=== PATIENT | female | born 1990 | race Caucasian/White ===

== ENCOUNTER → 2020-05-23 17:17 | Outpatient (CLI) | payer BC, SELFPAY | PROVIDERS: Visit Provider Nurse Practitioner Family | DX: N39.0 Urinary tract infection, site not specified (principal) | CPT/HCPCS: 87086 ==

== ENCOUNTER 2021-05-20 20:05 | Emergency (ER) | payer BC, SELFPAY ==
[2021-05-20 20:06] VITALS: BP 119/80; PULSE 108; RESP 18; TEMP 36.9; O2SAT 99; BMI 29.2
--- NOTE | 2021-05-20 20:47 | CT_ITS ---
PROCEDURE INFORMATION: Exam: CT Abdomen And Pelvis With Contrast Exam date and time: 05/20/2021 8:47 PM Age: 30 years old Clinical indication: Nausea and vomiting and other: Diarrhea; Additional info: N/v/d, abd sore TECHNIQUE: Imaging protocol: Computed tomography of the abdomen and pelvis with contrast. Radiation optimization: All CT scans at this facility use at least one of these dose optimization techniques: automated exposure control; mA and/or kV adjustment per patient size (includes targeted exams where dose is matched to clinical indication); or iterative reconstruction. Contrast material: ISOVUE; Contrast volume: 75 ml; Contrast route: IV; COMPARISON: ABDPELW CT abdomen pelvis w con 01/01/2019 8:22 PM FINDINGS: Lungs: No mass/infiltrate at either lung base. No pleural effusion. Liver: There is a 9 mm well-circumscribed low-attenuation area present within the posterior segment of the right hepatic lobe. It was present on prior examination of 01/01/2019. Is felt to be benign in nature. It probably represents either a small cyst or hemangioma in this location. The liver is normal in size. No evidence of intrahepatic biliary dilatation. Gallbladder and bile ducts: Normal. No calcified stones. No ductal dilation. Gallbladder wall thickness is normal. Pancreas: Normal. No ductal dilation. Spleen: Normal. No splenomegaly. Adrenal glands: Normal. No mass. Kidneys and ureters: There is a 2 mm nonobstructing nephrolith within the interpolar region of the right kidney. This appears new since prior examination. No evidence of soft tissue mass. No hydronephrosis. Stomach and bowel: Unremarkable. No obstruction. No mucosal thickening. Small bowel mesentery is normal. Appendix: The appendix is poorly visualized on this examination. There is no evidence of acute inflammatory process within the right lower quadrant. Intraperitoneal space: Unremarkable. No free air. No significant fluid collection. Vasculature: Unremarkable. No abdominal aortic aneurysm. Lymph nodes: Unremarkable. No enlarged lymph nodes. Urinary bladder: Unremarkable as visualized. Reproductive: The uterus is retroverted and retroflexed. There is a 3.8 cm low-attenuation mass without enhancement present within the right adnexal region, likely representing a functional ovarian cyst of the right ovary. This could be further evaluated with ultrasound of the pelvis with transvaginal and Doppler sonography. Bones/joints: Unremarkable. No acute fracture. Soft tissues: There is a small umbilical hernia which contains fat. No evidence of incarceration. IMPRESSION: 1. Findings within the right adnexal region likely reflect a functional ovarian cyst of right ovary. The uterus appears retroverted and retroflexed. Ultrasound of the pelvis with transvaginal and Doppler sonography could be performed for further evaluation. 2. No evidence of acute process within the abdomen or pelvis. 3. Small umbilical hernia which contains fat. No incarceration.
--- NOTE | 2021-05-20 20:47 | HMH.EDNVD ---
ED Disposition Clinical Impression: Gastroenteritis Disposition: Home, Self-Care Condition on Discharge: Good Instructions: DI for Diarrhea and Traveler's Diarrhea -- Adult Additional Instructions: fluids and see pcp for follow up Referrals: Jeff Haq APRN [Primary Care Provider] - - Critical Care Critical Care Time: No Attestation: On 05/20/21, the high probability of a clinically significant, sudden or life threatening deterioration of the following system(s) required my full and direct attention, intervention and personal management. The time I documented below is in addition to time spent performing reported procedures but includes the following listed in this critical care notation. Medical Decision Making - Medical Records Medical records reviewed: Yes: I reviewed the patient's medical records. - Guy Inquiry Pt receiving controlled substance: No Vital Signs: 05/20/21 20:06 Temperature 98.4 F Temperature Source Oral Pulse Rate [Right] 108 H Respiratory Rate 18 Blood Pressure [Right Arm] 119/80 Blood Pressure Mean [Right Arm] 93 02 Sat by Pulse Oximetry 99 Oxygen Delivery Method Room Air - Lab Data Lab results reviewed: Yes: I reviewed the patient's lab results. Lab Results 05/20/21 20:27: Urine Color Yellow, Urine Appearance Clear, Urine pH 6.0, Ur Specific [place] >= 1.030, Urine Protein Trace, Urine Glucose (UA) Negative, Urine Ketones Trace, Urine Blood 1+, Urine Nitrate Negative, Urine Bilirubin 1+ A, Urine Urobilinogen 2.0, Ur Leukocyte Esterase Negative, Urine RBC 3-5, Urine WBC 3-5, Ur Squamous Epith Cells 20-50, Urine Bacteria 1+, Urine Mucus 1+ 05/20/21 20:44: WBC 7.9, RBC 4.51, Hgb 14.5, Hct 42.9, MCV 95.0, MCH 32.2 H, MCHC 33.9, RDW 13.0, Plt Count 248, MPV 8.2, Neut % (Auto) 78.7, Lymph % (Auto) 17.3, [place] % (Auto) 3.4, Eos % (Auto) 0.3, Baso % (Auto) 0.3, Neut # (Auto) 6.2, Lymph # (Auto) 1.4, [place] # (Auto) 0.3, Eos # (Auto) 0.0, Baso # (Auto) 0.0 05/20/21 20:44: Sodium 138, Potassium 3.8, Chloride 103, Carbon Dioxide 27, Anion Gap 11.8, BUN 13, Creatinine 0.80, Estimated Creat Clear 124, Estimated GFR 84, Est GFR ( Amer) 101, Glucose 102 H, Calcium 9.5, Total Bilirubin 0.6, AST 30, ALT 26, Alkaline Phosphatase 61, C-Reactive Protein 21.7 H, Total Protein 7.6, Albumin 4.5, Globulin 3.1, Albumin/Globulin Ratio 1.5, Amylase 63, Lipase 45 05/20/21 20:44: Lactate 0.7 05/20/21 20:44: Serum HCG, Qual Negative 05/20/21 20:44: ESR 53 H 05/20/21 20:44: Procalcitonin 0.141 Result diagrams: 05/20/21 20:44 05/20/21 20:44 Orders (Tests/Meds): ED MEDICATIONS Generic Name Dose Route Start Last Admin Trade Name Freq PRN Reason Stop Dose Admin Sodium Chloride 8 ml 05/20/21 20:47 Sodium Chloride 0.9% 10ml Vial IV 06/19/21 20:46 NEEDED PRN dilute pepcid Discontinued Medications Generic Name Dose Route Start Last Admin Trade Name Freq PRN Reason Stop Dose Admin Famotidine 20 mg 05/20/21 20:47 05/20/21 21:53 Famotidine 20mg/2ml Vial IV 05/20/21 20:48 20 mg ONCE ONE Administration Sodium Chloride 1,000 mls @ 999 mls/hr 05/20/21 21:00 05/20/21 21:59 Sod Chlor 0.9% 1000ml Bag IV 05/20/21 22:00 999 mls/hr .Q1H1M JERE Administration Iopamidol 75 ml 05/20/21 21:57 05/20/21 21:57 Iopamidol-370 (76%);100ml Bottle IV 05/20/21 21:58 75 ml ONCE ONE Administration Ketorolac Tromethamine 30 mg 05/20/21 20:47 05/20/21 21:54 Ketorolac 30mg/Ml Vial IV 05/20/21 20:48 30 mg ONCE ONE Administration Metoclopramide HCl 10 mg 05/20/21 20:47 05/20/21 21:54 Metoclopramide Hcl 10mg/2ml Vial IVP 05/20/21 20:48 10 mg ONCE ONE Administration Ondansetron HCl 4 mg 05/20/21 20:47 05/20/21 21:54 Ondansetron 4mg/2ml Vial IV 05/20/21 20:48 4 mg ONCE ONE Administration Sodium Chloride 10 ml 05/20/21 21:57 05/20/21 21:57 Sodium Chloride 0.9% 10ml Syr (Rad Only) IV 05/20/21 21:58 10 ml ONCE ONE Administratio
[2021-05-20 21:02] LABS: Microscopic, Urine URINE MICROSCOPIC (MICROSCOPIC)
[2021-05-20 21:30] LABS: Alanine Aminotransferase 26 U/L (12-78); Albumin Level 4.5 g/dl (3.5-5.0); Albumin/Globulin Ratio 1.5 (1.1-1.8); Alkaline Phosphatase 61 U/L (38-126); Amylase 63 U/L (30-110); Anion Gap 11.8 mEq/L (5-15); Aspartate Amino Transferase 30 U/L (14-36); Bilirubin,Total 0.6 mg/dl (0.2-1.3); Blood Urea Nitrogen 13 mg/dl (7-17); Calcium 9.5 mg/dl (8.4-10.2); Carbon Dioxide 27 mmol/L (22.0-30.0); Chloride 103 mmol/L (98-107); Creatinine Clearance Estimated 124 mL/min (50-200); Estimated Glomerular Filt Rate 84 ml/min (>60); GFR (African American) 101 ML/MIN (>60); Globulin 3.1 g/dL (1.3-3.2); Glucose 102 mg/dl (74-100); Lipase 45 U/L (23-300); Potassium 3.8 mmoL/L (3.5-5.1); Sodium 138 mmol/L (136-145); Total Protein,Serum 7.6 g/dl (6.3-8.2)
[2021-05-20 21:31] LABS: Lactic Acid 0.7 mmol/L (0.7-2.1)
[2021-05-20 21:33] LABS: HCG Qualitative, Serum Negative (Negative)
[2021-05-20 21:36] LABS: C-Reactive Protein 21.7 mg/L (0-4)
[2021-05-20 21:38] LABS: Basophils % 0.3 % (0.1-2.0); Eosinophils % 0.3 % (0.1-12.0); Hematocrit 42.9 % (37.0-47.0); Hemoglobin 14.5 g/dL (12.2-16.2); Lymphocytes # 1.4 K/mm3 (0.7-4.5); Lymphocytes % 17.3 % (10-50); Mean Corpuscular HGB Conc 33.9 g/dL (31.8-35.4); Mean Corpuscular Hemoglobin 32.2 pg (27.0-31.2); Mean Platelet Volume 8.2 fl (7.4-10.4); Monocytes # 0.3 K/mm3 (0.1-1.0); Monocytes % 3.4 % (1.7-9.3); Neutrophils # 6.2 K/mm3 (1.8-7.8); Neutrophils % 78.7 % (37.0-80.0); Platelet Count 248 K/mm3 (142-424); Red Blood Count 4.51 M/mm3 (4.20-5.40); White Blood Count 7.9 K/mm3 (4.8-10.8)
[2021-05-20 21:42] LABS: Appearance,Urine CLEAR (Clear); Blood, Urine 1+ (Negative); Color,Urine YELLOW (Yellow); Glucose,Urine (UA) Negative (Negative); Ketones,Urine TRACE (Negative); Leukocyte Esterase,Urine Negative (Negative); Nitrate,Urine Negative (Negative); Protein,Urine TRACE (Negative); Specific Gravity, Urine >= 1.030 (1.005-1.030)
[2021-05-20 21:44] LABS: Bilirubin,Urine 1+ (Negative)
[2021-05-20 21:49] LABS: Procalcitonin 0.141 ng/mL (0.0-2.0)
[2021-05-20 22:15] LABS: Erythrocyte Sedimentation Rate 53 mm/hr (0-20)
[2021-05-20 23:02] LABS: Bacteria,Urine 1+ /lpf; Mucus,Urine 1+ /lpf; Squamous Epithelial Cell,Urine 20-50 #/hpf (0-5)
[2021-05-20 23:14] VITALS: BP 105/65; PULSE 70; RESP 14; TEMP 36.9
== END 2021-05-20 23:25 | disposition home or self-care (01) ==
PROVIDERS: Emergency Provider Emergency Medicine; PCP Nurse Practitioner Family
DX: K52.9 Noninfective gastroenteritis and colitis, unspecified (principal); F41.9 Anxiety disorder, unspecified; F17.210 Nicotine dependence, cigarettes, uncomplicated
CPT/HCPCS: 74177; 80053; 81001; 82150; 83605; 83690; 84145; 84703; 85025; 85651; 86140; 96365; 96375; 99283; J2405; Q9967

== ENCOUNTER 2021-07-31 15:04 | Emergency (ER) | payer BC, SELFPAY ==
[2021-07-31 15:05] VITALS: BP 117/79; PULSE 84; RESP 18; TEMP 36.8; O2SAT 97; BMI 29.2
[2021-07-31 17:26] LABS: Apearance,Urine Turbid (Clear); Color,Urine Dark Yellow (Yellow)
[2021-07-31 17:27] LABS: Bilirubin,Urine Negative (Negative); Blood, Urine 3+ (Negative); Glucose,Urine (UA) Negative (Negative); Ketones,Urine Negative (Negative); Protein,Urine Negative (Negative); Specific Gravity, Urine > 1.030 (1.005-1.030); UTC Leukocyte Esterase,Urine Negative (Negative); UTC Nitrate,Urine Negative (Negative); Urobilinogen,Urine 0.2 EU/dl (0.2)
--- NOTE | 2021-07-31 17:27 | HMH.EDUTC ---
[facility] Clinical Impression: UTI (urinary tract infection) Qualifiers: Urinary tract infection type: site unspecified Hematuria presence: with hematuria Qualified Code(s): N39.0 - Urinary tract infection, site not specified Disposition: Home, Self-Care Condition on Discharge: Good Instructions: Urinary Tract Infection, Urine Culture, DI for Urinary Tract Infection (UTI), Phenazopyridine Additional Instructions: Drink plenty of fluids. Take tylenol or ibuprofen for pain or fever. Take the medications as directed. Follow up with your regular doctor. GO TO THE ER FOR ANY WORSENING SYMPTOMS The pyridium will make your urine turn orange, this is an expected side effect. It will stain your clothes if it comes into contact with them. We will culture the urine. That will tell what bacteria is causing your infection and which antibiotics will treat it best. Sometimes the first antibiotic we prescribe turns out to not work against different bacteria. So, make sure you follow up within 3 days if you are not getting better. Prescriptions: Ondansetron [Zofran 4mg ODT] 4 mg PO Q8HP PRN #20 tab PRN Reason: Nausea Transmission Status: Received by [id number] Sulfamethoxazole/Trimethoprim [Bactrim DS tablet] 1 each PO BID 7 Days #14 tab Transmission Status: Received by [id number] Phenazopyridine HCl [Pyridium 200mg Tablet] 200 pow PO TID #6 tab Transmission Status: Received by [id number] Referrals: Jeff Haq APRN [Primary Care Provider] - Forms: Work/School Release Time of Disposition: 18:14 Medical Decision Making - Medical Records Medical records reviewed: No: I reviewed the patient's medical records. - Guy Inquiry Pt receiving controlled substance: No Vital Signs: 07/31/21 15:05 07/31/21 18:24 Temperature 98.3 F 98.3 F Temperature Source Oral Pulse Rate 84 Pulse Rate [Left Radial] 84 Respiratory Rate 18 18 Blood Pressure 117/79 Blood Pressure [Left Arm] 117/79 Blood Pressure Mean [Left Arm] 91 Blood Pressure Source [Left Arm] Automatic Cuff Blood Pressure Position [Left Arm] Sitting 02 Sat by Pulse Oximetry 97 Oxygen Delivery Method Room Air - Lab Data Lab Results 07/31/21 17:25: Urine Color Dark yellow, Urine Appearance Turbid, Urine pH 6.0, Ur Specific [place] > 1.030 H, Urine Protein Negative, Urine Glucose (UA) Negative, Urine Ketones Negative, Urine Blood 3+, Urine Nitrate Negative, Urine Bilirubin Negative, Urine Urobilinogen 0.2, Ur Leukocyte Esterase Negative [facility] [place] - General Stated complaint: lower right abdominal pain, and back, vaginal pain Time Seen by Provider: 07/31/21 17:28 Mode of Arrival: Ambulatory Source of Information: Patient Limitations: No Limitations Description of Symptoms (Recalled from Triage Doc. by RN): Pt c/o lower abd and back pain/pressure into vaginal area. Also c/o pain/burning with urination since approx 1000 today. - History of Present Illness Provider Complaint: She states that since yesterday, she has had right lower back pain and urinary frequency. She started to have pressure in her bladder area today and vaginal discomfort at times. She does have a history of getting UTI. - Related Data Home Medications Medication Instructions Recorded Confirmed Medroxyprogesterone Acetate 150 mg IM DIRECTED 05/20/21 05/20/21 [Depo-Provera] Previous Rx's Medication Instructions Recorded Ondansetron [Zofran 4mg ODT] 4 mg PO Q8HP PRN #20 tab 07/31/21 Phenazopyridine HCl [Pyridium 200 pow PO TID #6 tab 07/31/21 200mg Tablet] Sulfamethoxazole/Trimethoprim 1 each PO BID 7 Days #14 tab 07/31/21 [Bactrim DS tablet] Allergies Allergy/AdvReac Type Severity Reaction Status Date / Time fluconazole Allergy Verified 05/23/20 13:58 [facility] History - Hepatitis A Screen Attestation statement:: This patient has been screened for Hepatitis A risk factors.
[2021-07-31 18:24] VITALS: BP 117/79; PULSE 84; RESP 18; TEMP 36.8
== END 2021-07-31 18:25 | disposition home or self-care (01) ==
PROVIDERS: Emergency Provider Nurse Practitioner Family; PCP Nurse Practitioner Family
DX: N30.00 Acute cystitis without hematuria (principal); F41.8 Other specified anxiety disorders; F17.210 Nicotine dependence, cigarettes, uncomplicated
CPT/HCPCS: 81003; 87086; 99202; G0463

== ENCOUNTER 2022-07-07 10:37 | Emergency (ER) | payer BC, SELFPAY ==
[2022-07-07 10:50] VITALS: BP 117/80; PULSE 104; RESP 20; TEMP 37.1; O2SAT 98; BMI 30.1
--- NOTE | 2022-07-07 11:02 | EXP.UTC ---
Discharge Plan Disposition Patient Disposition: Home, Self-Care Condition: Good Prescriptions Prescriptions: New amoxicillin [amoxicillin] 500 mg tablet 500 mg PO TID 10 Days Qty: 30 0RF benzonatate [benzonatate] 100 mg capsule 100 mg PO TIDP PRN (Reason: Cough) Qty: 30 0RF methylprednisolone 4 mg Tablets,Dose Pack 4 mg PO DIRECTED Qty: 21 0RF No Action medroxyprogesterone 150 MG/ML syringe 150 mg IM DIRECTED Referrals Follow up/Referrals: Jeff Haq APRN [Primary Care Provider] - See instructions Activity Restrictions/Add. Instructions Additional Instructions/Restrictions: Drink plenty of fluids. Take tylenol or ibuprofen for pain or fever. Take the medications as directed. Follow up with your regular doctor. GO TO THE ER FOR ANY WORSENING SYMPTOMS Clinical Impressions Clinical Impression: Pharyngitis Instructions Patient Instructions: Strep Throat, DI for Strep Throat Discharge ED Provider: Evan Velázquez [facility] [place] General Stated complaint: Headache nausea diarrhea Time Seen by Provider: 07/07/22 11:01 History of Present Illness Provider Complaint: She states that for the past 1 day she has had sore throat, chills, and low grade fever. Related Data Home Medications Medication Instructions Recorded Confirmed medroxyprogesterone 150 mg/mL 150 mg IM DIRECTED control 05/20/21 07/07/22 intramuscular syringe Previous Rx's Medication Instructions Recorded amoxicillin 500 mg tablet 500 mg PO TID 10 days #30 tabs 07/07/22 benzonatate 100 mg capsule 100 mg PO TIDP PRN Cough #30 caps 07/07/22 methylprednisolone 4 mg tablets in 4 mg PO DIRECTED #21 tabs 07/07/22 a dose pack Allergies Allergy/AdvReac Type Severity Reaction Status Date / Time fluconazole Allergy Verified 07/07/22 11:22 [facility] Disclaimer: The information contained in this section may have been updated after the patient was seen, as this information can be updated by other users. Medical History Anxiety Depression Family history of breast cancer Family history of breast cancer gene mutation in first degree relative Social History Smoking Status: Current every day smoker tobacco type: cigarettes packs per day: 1 alcohol intake: never substance use type: denies use current occupational status: employed Travel in the last 8 weeks: None household members: family housing: house ROS Obtained: Yes All systems reviewed & no additional complaints except as documented Constitutional Constitutional: Reports chills and Reports fever(s) Eyes Eyes: Denies eye discharge ENT Ears, Nose, Mouth, and Throat: Reports as per HPI Cardiovascular Cardiovascular: Denies chest pain Respiratory Respiratory: Denies chest congestion and Reports cough Gastrointestinal Gastrointestingal: Reports nausea; Denies abdominal pain, constipation, cramping, diarrhea or vomiting Musculoskeletal Musculoskeletal: Denies arthralgias Integumentary/Breasts Skin/Breast: Denies rash Neurologic Neurologic: Denies paresthesias Physical Exam General General appearance: alert and in no apparent distress Head Head exam: atraumatic, normocephalic and normal inspection Eye Eye exam: Present normal appearance, PERRL and EOMI ENT ENT exam: Present mucous membranes moist and normal external ear exam Expanded ENT Exam TM/Canal exam: Bilateral TM: erythema and bulging Nose exam: Absent sinus tenderness Mouth exam: Present normal external inspection; Absent drooling Teeth exam: Present normal inspection Throat exam: Present tonsillar erythema, tonsillomegaly and tonsillar exudate Neck Neck exam: Present normal inspection, full ROM and trachea midline; Absent tenderness, meningismus or lymphadenopathy Chest Chest inspection: Present normal inspection and symmetric chest wall rise; Abs
[2022-07-07 11:16] LABS: UTC Strep Screen (Rapid) Negative (Negative)
[2022-07-07 11:59] VITALS: BP 117/80; PULSE 104; RESP 20; TEMP 37.1; O2SAT 98
== END 2022-07-07 11:59 | disposition home or self-care (01) ==
PROVIDERS: Emergency Provider Nurse Practitioner Family; PCP Nurse Practitioner Family
DX: J02.9 Acute pharyngitis, unspecified (principal)
CPT/HCPCS: 87880; 99212; G0463